=== PATIENT | female | born 2005 | race Caucasian/White ===

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

== ENCOUNTER → 2025-03-19 11:17 | Outpatient (CLI) | payer OTHER, SELFPAY ==
[2025-03-19 18:39] LABS: HEMOLYSIS < 15 (0-50); Iron 197 ug/dL (37-170)
[2025-03-19 18:41] LABS: Alanine Aminotransferase 22 IU/L (<35); Albumin 4.7 g/dL (3.5-5.0); Albumin Globulin Ratio 1.7 (1.0-2.8); Alkaline Phosphatase 77 U/L (38-126); Blood Urea Nitrogen 14 mg/dL (7-17); Calcium 9.7 mg/dL (8.4-10.2); Carbon Dioxide 27 mmol/L (22-32); Chloride 103 mmol/L (98-107); Estimated Glomerular Filt Rate > 60 mL/min (>60); Globulin 2.8 g/dL (1.7-4.1); Glucose 79 mg/dL (70-99); HEMOLYSIS < 15 (0-50); Potassium 4.2 mmol/L (3.4-5.1); Sodium 139 mmol/L (137-145); Total Protein 7.5 g/dL (6.3-8.2)
[2025-03-19 18:51] LABS: Percent Iron Saturation 51 % (15-50); Total Iron Binding Capacity 389 ug/dL (265-497); Transferrin 311 mg/dL (206-381)
[2025-03-19 19:15] LABS: Ferritin 14 ng/mL (6-137)
[2025-03-20 20:36] LABS: Deamidated Gliadin Ab IgA 5 units (0-19); Deamidated Gliadin Ab IgG 3 units (0-19); Immunoglobulin A,Qn 199 mg/dL (87-352)
== END ==
PROVIDERS: PCP Pediatrics; Referring Provider Pediatrics; Visit Provider Pediatrics
DX: G43.009 Migraine without aura, not intractable, without status migrainosus (principal); M62.81 Muscle weakness (generalized); R53.82 Chronic fatigue, unspecified
CPT/HCPCS: 80053; 82533; 82728; 82784; 83090; 83516; 83540; 83550; 83970; 84146; 86140; 86277